=== PATIENT | female | born 1990 | race Caucasian/White ===

== ENCOUNTER 2019-04-15 01:01 | Inpatient (IN) | payer MEDICAID ==
[~2019-04-15] VITALS: Ht 170.2 cm; Wt 102.3 kg
[~2019-04-15 01:01] MED LIST: ALBU18HF2 IH; BUDE10.24 IH; CLON-528 PO; CYCL-1 PO; FLUT16SP26 NS; Levofloxacin PO; TRAM50TA2 PO
[2019-04-15] MEDS ORDERED: methylPREDNISolone sod succ 125mg/2ml vial IV ONE (01:05)
[2019-04-15] MEDS ORDERED: terbutaline 1 mg/ml inj SQ STA (01:05)
[2019-04-15] MEDS ORDERED: albuterol 2.5 MG/3 ML nebule CONTNEB PRN (01:05)
[2019-04-15] MEDS ORDERED: magnesium 2GM in 50ml NS 50 ML IV ONE (01:05)
[2019-04-15] MEDS ORDERED: normal saline 1000ML IV soln IVB ONE (01:05)
[2019-04-15 01:20] LABS: ABG HCO3 22.5 mmol/L (22.0-26.0); ABG PCO2 (T) 52.5 mmHg (35.0-45.0); ABG PO2 (T) 100.5 mmHg (83-108); ALLEN'S TEST Positive; FCOHb 0.5 % (0.5-1.5); FLOW 4 L/min; FMetHb 0.1 % (0.3-1.12); FO2Hb 95.4 % (94-100); RESPIRATORY RATE (OBSERVED) 26 b/min; TOTAL HEMOGLOBIN 11.8 G/dl (12.0-16.0)
[2019-04-15 01:32] LABS: BASOPHILS # (AUTO) 0.1 X10'3 (0-0.2); BASOPHILS % (AUTO) 0.5 % (0-1); EOSINOPHILS # (AUTO) 0.6 X10'3 (0-0.9); HEMATOCRIT 35.6 % (35.0-45.0); HEMOGLOBIN 11.6 g/dl (12.0-16.0); LYMPHOCYTES # (AUTO) 3.5 X10'3 (1.1-4.8); LYMPHOCYTES % (AUTO) 23.7 % (21-51); MEAN CORPUSCULAR HEMOGLOBIN 27.3 PG (27.0-31.0); MEAN CORPUSCULAR HGB CONC 32.4 g/dL (33.0-36.5); MEAN CORPUSCULAR VOLUME 84.3 FL (78-98); MEAN PLATELET VOLUME 9.4 FL (7.4-10.4); MONOCYTES # (AUTO) 0.8 X10'3 (0-0.9); MONOCYTES % (AUTO) 5.5 % (2-12); NEUTROPHILS # (AUTO) 9.9 X10'3 (1.8-7.7); NEUTROPHILS % (AUTO) 66.3 % (42-75); PLATELET COUNT 325 X10'3 (140-440); RED BLOOD COUNT 4.23 X10'6 (4.20-5.60); RED CELL DISTRIBUTION WIDTH 14.3 % (11.5-14.5)
--- NOTE | 2019-04-15 01:51 | NUR ---
ADMINISTERED MAG SULFATE AT BEDSIDE.
[2019-04-15 02:05] LABS: ALANINE AMINOTRANSFERASE 13 U/L (12-78); ALBUMIN 3.5 G/DL (3.4-5.0); ALBUMIN/GLOBULIN RATIO 0.6 (1.1-1.5); ALKALINE PHOSPHATASE 112 IU/L (46-116); ANION GAP 8 (8-16); ASPARTATE AMINO TRANSFERASE 15 U/L (10-37); BILIRUBIN,TOTAL 0.2 MG/DL (0.1-1.0); BLOOD UREA NITROGEN 8 MG/DL (7-18); BUN/CREATININE RATIO 8.1 (6.6-38.0); CHLORIDE 104 MMOL/L (99-107); CREATININE 0.99 MG/DL (0.40-0.90); GLUCOSE 197 MG/DL (70-104); MAGNESIUM 1.7 MG/DL (1.5-2.4); POTASSIUM 4.1 MMOL/L (3.5-5.1); SODIUM 139 MMOL/L (135-145); TOTAL CARBON DIOXIDE 26.6 MMOL/L (24-32); eGFR 66 ML/MIN
[2019-04-15 02:12] LABS: PARTIAL THROMBOPLASTIN TIME 33 SECONDS (22-32)
--- NOTE | 2019-04-15 02:22 | NUR ---
PT UP TO RESTROOM. AMBUALTED WITH NO ASSISTANCE REQUIRED ON ROOM AIR. DENIES SOB, NO S/SX OF RESP DISTRESS. PT HAS PORTABLE O2 TANK IN RESTROOM AND INSTRUCTED TO USE IF EXPERIENCING SOB.
--- NOTE | 2019-04-15 02:30 | NUR ---
PT AMBUALTED BACK TO BED WITHOUT O2. SPO2 MAINTAING >92% ON RA. PT C/O SLIGHT SOB. PLACED ON O2 AT 2 L NC, PT TOLERATED WITH NO SOB. SPO2 STILL >92%.
[2019-04-15] MEDS ORDERED: ALBU18HF2 INH (02:56)
[2019-04-15] MEDS ORDERED: GABA-532 PO ×2 (02:56)
[2019-04-15] MEDS ORDERED: CLON-529 PO ×2 (02:56)
[2019-04-15] MEDS ORDERED: DULO-31 PO (02:56)
[2019-04-15] MEDS ORDERED: ZOLP5TAB8 PO (02:56)
[2019-04-15] MEDS ORDERED: MONT10TA21 PO (02:56)
[2019-04-15] MEDS ORDERED: BUPR1FIL3 SL (02:56)
[2019-04-15] MEDS ORDERED: CETI-102 PO (02:56)
--- NOTE | 2019-04-15 03:00 | NUR ---
I have received report from Johann HEDRICK and had the opportunity to ask questions and assume patient care. Addendum: 04/15/19 at 0624 by Radha Guillermo RN Correct time @[id number]
[2019-04-15] MEDS ORDERED: albuterol 2.5 MG/3 ML nebule NEB PRN ×3 (03:15→03:35)
[2019-04-15] MEDS ORDERED: normal saline 1000ml 1,000 ML IV SCH (03:34)
[2019-04-15] MEDS ORDERED: mag hydrox/Alum hydrox/simeth 30ml oral suspension PO PRN (03:35)
[2019-04-15] MEDS ORDERED: ondansetron/PF 4mg/2ml inj IV PRN (03:35)
[2019-04-15] MEDS ORDERED: magnesium hydroxide 30ml (MOM) UD suspension PO PRN (03:35)
[2019-04-15] MEDS ORDERED: acetaminophen 325mg tablet PO PRN (03:35)
[2019-04-15] MEDS ORDERED: non-formulary drug (Albuterol Sulfate (Ventolin Hfa) 2 PUFFS) INH PRN (03:40)
[2019-04-15] MEDS ORDERED: cyclobenzaprine 10mg tablet PO PRN (03:40)
[2019-04-15] MEDS ORDERED: zolpidem 5mg tablet PO PRN (03:40)
[2019-04-15 05:15] VITALS: BP 156/98
[2019-04-15] MEDS: clonazePAM 0.5mg tablet PO PRN ×2 (05:48→12:08)
[2019-04-15] MEDS ORDERED: pneumococcal 23-VAL P-sac vacc 25 mcg/0.5ml vial IMVAC ONE (06:05)
--- NOTE | 2019-04-15 06:19 | NUR ---
Patient report given, questions answered & plan of care reviewed with Ashley HEDRICK.
--- NOTE | 2019-04-15 06:36 | NUR ---
Patient in room [facility]THO 4020. I have received report from Radha and had the opportunity to ask questions and assume patient care.
[2019-04-15] MEDS: gabapentin 300mg capsule PO SCH ×2 (07:43→12:48)
[2019-04-15] MEDS ORDERED: buprenorphine/naloxone 8MG-2MG SUBlingual film SL SCH (08:00)
[2019-04-15] MEDS ORDERED: montelukast 10mg tablet PO SCH (08:00)
[2019-04-15] MEDS ORDERED: cetirizine 10mg tablet PO SCH (08:00)
[2019-04-15] MEDS ORDERED: methylPREDNISolone sod succ/PF 40mg inj. IV SCH (08:00)
[2019-04-15] MEDS ORDERED: cloNIDine 0.1 mg tablet PO SCH ×2 (08:00→21:00)
[2019-04-15] MEDS ORDERED: heparin, porcine 5000 units/ml vial SQ SCH (08:00)
[2019-04-15 10:00] VITALS: BP 116/60
[2019-04-15] MEDS ORDERED: PRED10TA23 PO (11:37)
--- NOTE | 2019-04-15 12:16 | NUR ---
PAGER ID: [phone] MESSAGE: Davey Iqbal, Ms. Pierre in [id number] has a pro BNP of [phone] thank you Ashley
--- NOTE | 2019-04-15 13:20 | NUR ---
Discharge instructions were reviewed with pt. Pt verbalized understanding. Pt is alert, oriented and does not have c/o pain or discomfort at this time. All of pt's belongings were returned to pt. Rx was called in to [facility] on [facility]. Pt was wheeled downstairs to be driven home by family.
[2019-04-15] MEDS ORDERED: FURO-150 PO (13:23)
[2019-04-15] MEDS ORDERED: duloxetine 30mg CAPSULE.DR PO SCH (21:00)
[2019-04-15] MEDS ORDERED: gabapentin 300mg capsule PO SCH (21:00)
== END 2019-04-15 13:40 | disposition home or self-care (01) | DRG 133 ==
LOC: ER 01:02 → ED HOLD 03:34 → ORTHO 4S 05:15
PROVIDERS: ADMIT Internal Medicine; ATTEND Internal Medicine
DX: J96.01 Acute respiratory failure with hypoxia (principal); E87.2 Acidosis; I27.81 Cor pulmonale (chronic); I11.0 Hypertensive heart disease with heart failure; I50.813 Acute on chronic right heart failure; J45.901 Unspecified asthma with (acute) exacerbation; J96.02 Acute respiratory failure with hypercapnia; M54.9 Dorsalgia, unspecified; F17.210 Nicotine dependence, cigarettes, uncomplicated; F43.10 Post-traumatic stress disorder, unspecified; G89.29 Other chronic pain; M81.0 Age-related osteoporosis without current pathological fracture; Z79.899 Other long term (current) drug therapy; Z28.21 Immunization not carried out because of patient refusal; Z91.048 Other nonmedicinal substance allergy status; Z88.2 Allergy status to sulfonamides
CPT/HCPCS: 36415; 36600; 71045; 80053; 82803; 83735; 83880; 85018; 85025; 85610; 85730; 87081; 93005; 94640; 94760; 96365; 96375; 99291; G0378; J1644; J2920; J2930; J3475

== ENCOUNTER 2020-05-03 11:59 | Outpatient (CLI) | payer MEDICAID ==
[~2020-05-03 11:59] MED LIST changes: -ALBU18HF2 IH; +ALBU18HF2 INH; -BUDE10.24 IH; +BUPR1FIL3 SL; +CETI-90 PO; +CLON-529 PO; +DULO-31 PO; -FLUT16SP26 NS; +FURO-150 PO; +GABA-532 PO; -Levofloxacin PO; +MONT10TA21 PO; -TRAM50TA2 PO; +ZOLP5TAB8 PO
[2020-05-03] MEDS ORDERED: LIDOcaine 2% 5ml jelly ONE (12:25)
[2020-05-03] MEDS ORDERED: LIDOcaine 1%/PF 5ML 10 MG/ML VIAL ONE (12:41)
== END 2020-05-03 23:59 | disposition home or self-care (01) ==
LOC: WOUND CARE 11:59
PROVIDERS: ATTEND Nurse Practitioner
DX: T81.89XD Other complications of procedures, not elsewhere classified, subsequent encounter (principal); L97.312 Non-pressure chronic ulcer of right ankle with fat layer exposed; I10 Essential (primary) hypertension; H91.92 Unspecified hearing loss, left ear; M85.80 Other specified disorders of bone density and structure, unspecified site; F17.210 Nicotine dependence, cigarettes, uncomplicated; F41.9 Anxiety disorder, unspecified; Z96.661 Presence of right artificial ankle joint; Y83.8 Other surgical procedures as the cause of abnormal reaction of the patient, or of later complication, without mention of misadventure at the time of the procedure
CPT/HCPCS: 97597

== ENCOUNTER 2020-05-15 14:03 | Outpatient (CLI) | payer MEDICAID | END 2020-05-15 23:59 | disposition home or self-care (01) | LOC: WOUND CARE 14:03 | PROVIDERS: ATTEND Nurse Practitioner | DX: T81.89XD Other complications of procedures, not elsewhere classified, subsequent encounter (principal); L97.312 Non-pressure chronic ulcer of right ankle with fat layer exposed; I10 Essential (primary) hypertension; H91.92 Unspecified hearing loss, left ear; M85.80 Other specified disorders of bone density and structure, unspecified site; F17.210 Nicotine dependence, cigarettes, uncomplicated; F41.9 Anxiety disorder, unspecified; Z96.661 Presence of right artificial ankle joint; Y83.8 Other surgical procedures as the cause of abnormal reaction of the patient, or of later complication, without mention of misadventure at the time of the procedure | CPT/HCPCS: G0463 ==

== ENCOUNTER 2023-09-14 15:32 | Emergency (ER) | payer MEDICAID ==
[~2023-09-14] VITALS: Ht 170.2 cm; Wt 120.5 kg
[~2023-09-14 15:32] MED LIST changes: -CLON-528 PO; +CLON-850 PO; +MONT-47 PO; -MONT10TA21 PO
[2023-09-14 15:36] VITALS: BP 177/104; PULSE 105; RESP 16; TEMP 97.1; O2SAT 98
== END 2023-09-14 16:12 | disposition home or self-care (01) ==
LOC: ER 15:32
DX: I10 Essential (primary) hypertension (principal); J45.909 Unspecified asthma, uncomplicated; Z88.8 Allergy status to other drugs, medicaments and biological substances; Z88.2 Allergy status to sulfonamides; Z79.899 Other long term (current) drug therapy
CPT/HCPCS: 99281